=== PATIENT | female | born 2000 | race Two or more races ===

== ENCOUNTER 2024-06-26 09:51 | Outpatient (CLI) | payer OTHER | END 2024-06-26 10:00 | disposition home or self-care (01) | LOC: SONOGRAMA 09:51 | DX: M25.572 Pain in left ankle and joints of left foot (principal) ==

== ENCOUNTER 2024-07-09 09:03 | Emergency (ER) | payer OTHER ==
[~2024-07-09] VITALS: Ht 165.1 cm; Wt 103.4 kg
[2024-07-09 11:04] LABS: HEMATOCRIT 35.1 % (36.0-45.00); HEMOGLOBIN 11.9 g/dL (12.0-15.00); MEAN CELL VOLUME 85.4 fL (80.00-100.00); MEAN CORPUSCULAR HEMOGLOBIN 28.9 pg (27.00-32.0); MEAN CORPUSCULAR HGB CONC 33.9 g/dl (32.0-36.0); PLATELET COUNT 290 K/uL (150-450); RED BLOOD COUNT 4.11 M/uL (4.00-6.00)
== END 2024-07-09 14:48 | disposition home or self-care (01) ==
LOC: ER 09:05
PROVIDERS: Emergency Medicine
DX: O20.8 Other hemorrhage in early pregnancy (principal); Z3A.12 12 weeks gestation of pregnancy

== ENCOUNTER 2024-08-19 22:17 | Emergency (ER) | payer OTHER ==
[~2024-08-19] VITALS: Ht 165.1 cm; Wt 104.3 kg
[2024-08-19] MEDS ORDERED: 0.9 % SODIUM CHLORIDE 1,000 ML IV STA (23:41)
[2024-08-20 00:16] LABS: PH,URINE 7.5 (5.0-8.0); URINE APPEARANCE Cloudy; URINE BILIRRUBIN Negative (NEGATIVE); URINE BLOOD Negative; URINE COLOR Yellow; URINE GLUCOSE Negative (NEGATIVE); URINE KETONE Negative (NEGATIVE); URINE LEUKOCYTE Negative; URINE NITRATE Negative; URINE PROTEIN Negative (NEGATIVE); URINE UROBILINOGEN 0.2 E.U./dl
[2024-08-20 00:16] LABS: HEMATOCRIT 31.4 % (36.0-45.00); HEMOGLOBIN 10.5 g/dL (12.0-15.00); MEAN CELL VOLUME 85.5 fL (80.00-100.00); MEAN CORPUSCULAR HEMOGLOBIN 28.6 pg (27.00-32.0); MEAN CORPUSCULAR HGB CONC 33.4 g/dl (32.0-36.0); PLATELET COUNT 275 K/uL (150-450); RED BLOOD COUNT 3.67 M/uL (4.00-6.00); RED CELL DISTRIBUTION WIDTH 14.9 % (11.5-14.5)
[2024-08-20 00:20] LABS: URINE EPITHELIAL CELLS 15.7 uL (0.0-38.8)
[2024-08-20 00:40] LABS: CALCIUM 9.4 mg/dL (8.5-10.1); CREATININE SERUM 0.51 mg/dL (0.55-1.02); GFR 150.79
[2024-08-20] MEDS ORDERED: ACETAMINOPHEN 500 MG GEL..CAP PO ONE (02:46)
== END 2024-08-20 02:59 ==
LOC: ER 22:19
DX: O26.892 Other specified pregnancy related conditions, second trimester (principal); R10.2 Pelvic and perineal pain; Z3A.18 18 weeks gestation of pregnancy